=== PATIENT | female | born 1955 | race Caucasian/White ===

== ENCOUNTER 2018-01-02 17:48 | Emergency (ER) | payer OTHER ==
[~2018-01-02] VITALS: Ht 165.1 cm; Wt 49.0 kg
[2018-01-02 18:13] LABS: BE -28.4 mmol/L (-2 to +3)
[2018-01-02 18:19] LABS: PCO2 < 17.0 mmHg (35.0-45.0); PO2 153.5 mmHg (75.0-100.0); pH 6.913 (7.340-7.450)
[2018-01-02 18:20] LABS: HCO3 2.9 mmol/L (22.0-26.0)
[2018-01-02 18:22] LABS: URINE BILIRUBIN NEGATIVE (Negative); URINE BLOOD 2+ (Negative); URINE CLARITY CLEAR; URINE COLOR YELLOW; URINE GLUCOSE-RANDOM 3+ (Negative); URINE LEUKOCYTES-REFLEX NEGATIVE (Negative); URINE NITRITE-REFLEX NEGATIVE (Negative); URINE PROTEIN TRACE (Negative); URINE UROBILINOGEN 0.2 E.U./dl (0.2-1.0)
[2018-01-02 18:23] LABS: URINE KETONES 3+ (Negative)
[2018-01-02 18:33] LABS: HYALINE CASTS 0-3 Few /LPF (None Seen)
[2018-01-02 18:34] LABS: URINE RBC 3-10 Few /HPF (0-2)
[2018-01-02 18:34] LABS: HEMATOCRIT 46.3 % (37.0-47.0); HEMOGLOBIN 12.5 gm/dL (12.0-15.0); MCH 30.4 pg (26.0-34.0); MCHC 26.9 g/dL (28.0-37.0); MCV 112.9 fL (80.0-100.0); NUCLEATED RBCS 0 /100WBC; PLATELET COUNT* 454 thou/uL (150-400); RDW-CV 16.9 % (10.5-14.5); WBC 25.9 thou/uL (4.0-11.0)
[2018-01-02 18:35] LABS: AMORPHOUS URATES Few /LPF (None Seen); BACTERIA-REFLEX None Seen /HPF (None Seen); MUCUS None Seen strn/LPF (None Seen); SQUAMOUS 0-3 Few /LPF (0-3); URINE WBC-REFLEX 0-5 Rare /HPF (0-5)
[2018-01-02 18:46] LABS: SALICYLATE 5.8 mg/dL (2.8-20.0)
[2018-01-02 18:48] LABS: ACETAMINOPHEN < 2 ug/mL (10-30); ALCOHOL < 10 mg/dL (<10)
[2018-01-02 18:53] LABS: ABSOLUTE LYMPHOCYTES 1.6 thou/uL (0.8-5.3); ABSOLUTE MONOCYTES 0.8 thou/uL (0.0-1.2); ABSOLUTE NEUTROPHILS 23.6 thou/uL (1.6-8.1); PLATELET ESTIMATE INCREASED
[2018-01-02 18:54] LABS: ANISOCYTOSIS 2+; MACROCYTES 2+; POIKILOCYTOSIS 2+
[2018-01-02 18:58] LABS: BUN 31 mg/dL (7-18); CALCIUM 8.8 mg/dL (8.5-10.1); CHLORIDE 100 mmol/L (98-107); CREATININE 1.9 mg/dL (0.6-1.3); SODIUM 136 mmol/L (136-145)
[2018-01-02 18:59] LABS: ANION GAP 31 mmol/L (7-16)
[2018-01-02 19:03] LABS: CO2 < 5 mmol/L (21-32); GLUCOSE 1120 mg/dL (70-99); POTASSIUM 7.7 mmol/L (3.5-5.1)
[2018-01-02 19:14] LABS: ALBUMIN 3.5 g/dL (3.4-5.0); ALKALINE PHOSPHATASE 184 U/L (46-116); CK-MB MASS 0.7 ng/mL (<0.5-3.6); NT-PRO BRAIN NAT PEPTIDE 301 pg/mL (<300); SGOT 33 U/L (15-37); SGPT 33 U/L (30-65); TOTAL BILIRUBIN 0.5 mg/dL (<0.1-1.0); TOTAL PROTEIN 7.7 g/dL (6.4-8.2); TROPONIN-I LEVEL <0.06 ng/mL (<0.06)
[2018-01-02] MEDS ORDERED: HUMALOG100 UNIT/1 (20:09)
[2018-01-02] MEDS ORDERED: XANAX1 MG (20:09)
[2018-01-02] MEDS ORDERED: REGLAN 10 MG TA10 MG (20:09)
[2018-01-02] MEDS ORDERED: CELEXA20 MG (20:10)
[2018-01-02] MEDS ORDERED: OMEPRAZOLE40 MG (20:10)
[2018-01-02] MEDS ORDERED: SINGULAIR 10 MG10 M1 (20:10)
[2018-01-02] MEDS ORDERED: insulin pump (20:11)
[2018-01-02] MEDS ORDERED: CELEBREX 200 M200 M1 (20:12)
[2018-01-02 20:47] LABS: APTT 30.8 Seconds (25.0-31.3); PROTIME 10.3 Seconds (9.20-11.50)
[2018-01-02 21:04] LABS: HEMATOCRIT 47.6 % (37.0-47.0); MCH 30.2 pg (26.0-34.0); MCHC 27.3 g/dL (28.0-37.0); MCV 110.7 fL (80.0-100.0); MPV 9.8 fl. (7.2-11.1); NUCLEATED RBCS 0 /100WBC; PLATELET COUNT* 465 thou/uL (150-400); WBC 28.2 thou/uL (4.0-11.0)
[2018-01-02 21:08] LABS: BUN 29 mg/dL (7-18); CALCIUM 8.4 mg/dL (8.5-10.1); CHLORIDE 106 mmol/L (98-107); CREATININE 1.8 mg/dL (0.6-1.3); SODIUM 141 mmol/L (136-145)
[2018-01-02 21:09] LABS: ANION GAP 30 mmol/L (7-16)
[2018-01-02 21:27] LABS: CO2 < 5 mmol/L (21-32); GLUCOSE 818 mg/dL (70-99); POTASSIUM 6.2 mmol/L (3.5-5.1)
[2018-01-02 21:44] LABS: ABSOLUTE EOSINOPHILS 0.3 thou/uL (0.0-0.7); ABSOLUTE LYMPHOCYTES 3.7 thou/uL (0.8-5.3); ABSOLUTE MONOCYTES 1.4 thou/uL (0.0-1.2); ABSOLUTE NEUTROPHILS 22.8 thou/uL (1.6-8.1)
[2018-01-02 21:46] LABS: MACROCYTES 2+; PLATELET ESTIMATE INCREASED
[2018-01-02 21:47] LABS: ANISOCYTOSIS 1+
[2018-01-02 22:34] VITALS: BP 104/38
--- NOTE | 2018-01-03 14:15 | EKG ---
[place] [address] ELECTROCARDIOGRAM REPORT Name: SHERMAN ONTIVEROS Room: [facility]#: [id number] Admission: 01/02/18 Attend Phys: Discharge: 01/02/18 Date of : 57 Report #: [id number] THIS REPORT FOR: //name// [facility] ED Test Date: 2018-01-02 Test Time: 17:49:49 Pat Name: SHERMAN ONTIVEROS Department: Room: Gender: F [employer] Supervisor: UNKNOWN : 1955 Requested By: Harris Ospina Order Number: [id number] MD: Otilio Skelton Measurements Intervals [place] Rate: 113 P: 83 [place]: 157 QRS: 35 QRSD: 95 T: 6 QT: 343 QTc: 471 Interpretive Statements Sinus tachycardia No previous ECG available for comparison Electronically Signed On 01-03-2018 14:15:46 CDT by Otilio Skelton [email or web address] <ELECTRONICALLY SIGNED> By: Otilio Skelton MD, [facility] 01/03/18 1415 1749 1749 Otilio Skelton MD, FACC /EPI
== END 2018-01-02 22:36 | disposition short-term general hospital (02) ==
LOC: M.ERS 17:48
PROVIDERS: Emergency Medicine Emergency Medical Services; Personal Emergency Response Attendant
DX: E11.10 Type 2 diabetes mellitus with ketoacidosis without coma (principal); E11.65 Type 2 diabetes mellitus with hyperglycemia

== ENCOUNTER 2020-06-04 18:21 | Inpatient (IN) | payer MEDICARE, OTHER ==
[~2020-06-04] VITALS: Ht 170.2 cm; Wt 75.9 kg
[~2020-06-04 18:21] MED LIST: CELEBREX 200 M200 M1; CELEXA20 MG; HUMALOG100 UNIT/1; OMEPRAZOLE40 MG; REGLAN 10 MG TA10 MG; SINGULAIR 10 MG10 M1; XANAX1 MG; insulin pump
[2020-06-04 18:23] VITALS: BP 130/61
[2020-06-04] MEDS ORDERED: HUMALOG100 UNIT/1 SUBQ (18:27)
[2020-06-04] MEDS ORDERED: LANTUS SUBQ (18:27)
[2020-06-04 19:23] LABS: HEMATOCRIT 41.9 % (37.0-47.0); HEMOGLOBIN 13.9 gm/dL (12.0-15.0); MCHC 33.2 g/dL (28.0-37.0); MCV 93.4 fL (80.0-100.0); MPV 10.6 fl. (7.2-11.1); NUCLEATED RBCS 0 /100WBC; PLATELET COUNT* 279 thou/uL (150-400); RBC 4.49 mil/uL (4.20-5.00); RDW-CV 14.6 % (10.5-14.5)
[2020-06-04 19:24] LABS: BE -8.1 mmol/L (-2 to +3); PCO2 VENOUS 26.5 mmHg (41.0-51.0); PO2 VENOUS 184.1 mmHg (35.0-45.0)
[2020-06-04 19:32] LABS: CALCIUM 9.3 mg/dL (8.5-10.1); CREATININE 1.2 mg/dL (0.6-1.3); POTASSIUM 4.1 mmol/L (3.5-5.1)
[2020-06-04 19:36] LABS: ALBUMIN 3.8 g/dL (3.4-5.0); TOTAL BILIRUBIN 0.8 mg/dL (<0.1-1.0); TOTAL PROTEIN 7.9 g/dL (6.4-8.2)
[2020-06-04 19:45] LABS: URINE BLOOD 2+ (Negative); URINE CLARITY CLEAR; URINE COLOR YELLOW; URINE GLUCOSE-RANDOM 1+ (Negative); URINE LEUKOCYTES-REFLEX NEGATIVE (Negative); URINE NITRITE-REFLEX NEGATIVE (Negative); URINE PROTEIN 1+ (Negative); URINE SPECIFIC GRAVITY >= 1.030 (1.005-1.030); URINE UROBILINOGEN 0.2 E.U./dl (0.2-1.0)
[2020-06-04 19:46] LABS: URINE KETONES 3+ (Negative)
[2020-06-04 19:47] LABS: ICTOTEST (BILI CONFIRMATORY) Negative (Negative); URINE BILIRUBIN 1+ (Negative)
[2020-06-04 19:51] LABS: SQUAMOUS 0-3 Few /LPF (0-3)
[2020-06-04 19:52] LABS: BACTERIA-REFLEX >30 Many /HPF (None Seen); CASTS None Seen /LPF (None Seen); CRYSTALS None Seen /LPF (None Seen); HYALINE CASTS 0-3 Few /LPF (None Seen); MUCUS 4-6 Moderate strn/LPF (None Seen); URINE RBC 0-2 Rare /HPF (0-2); URINE WBC-REFLEX None Seen /HPF (0-5)
[2020-06-04 19:53] LABS: AMP/METHAMP Negative (Negative); BARBITURATES Negative (Negative); BENZODIAZEPINES POSITIVE (Negative); COCAINE Negative (Negative); METHADONE Negative (Negative); OPIATES Negative (Negative); PCP Negative (Negative); THC POSITIVE (Negative)
[2020-06-04 20:20] LABS: ABSOLUTE LYMPHOCYTES 1.4 thou/uL (0.8-5.3); ABSOLUTE MONOCYTES 0.8 thou/uL (0.0-1.2); ABSOLUTE NEUTROPHILS 17.8 thou/uL (1.6-8.1)
[2020-06-04 20:21] LABS: PLATELET ESTIMATE ADEQUATE
[2020-06-04 23:15] VITALS: BP 118/60
[2020-06-05] VITALS (8 sets, daily range): BP systolic 115–144; BP diastolic 43–75
[2020-06-05] MEDS ORDERED: DULOXETINE HCL20 MG PO (01:18)
[2020-06-05 04:38] LABS: ABSOLUTE LYMPHOCYTES 1.7 thou/uL (0.8-5.3); ABSOLUTE MONOCYTES 1.5 thou/uL (0.0-1.2); ABSOLUTE NEUTROPHILS 12.9 thou/uL (1.6-8.1); BASOPHILS 0.2 %; HEMATOCRIT 35.9 % (37.0-47.0); LYMPHOCYTES 10.8 %; MCHC 33.5 g/dL (28.0-37.0); MCV 92.4 fL (80.0-100.0); MONOCYTES 9.5 %; MPV 10.9 fl. (7.2-11.1); NUCLEATED RBCS 0 /100WBC; PLATELET COUNT* 267 thou/uL (150-400); POLYS 79.5 %; RBC 3.89 mil/uL (4.20-5.00); RDW-CV 14.3 % (10.5-14.5); WBC 16.3 thou/uL (4.0-11.0)
[2020-06-05 05:57] LABS: CALCIUM 8.4 mg/dL (8.5-10.1); CREATININE 0.9 mg/dL (0.6-1.3); POTASSIUM 3.1 mmol/L (3.5-5.1)
--- NOTE | 2020-06-05 09:43 | EKG ---
[place] [address] ELECTROCARDIOGRAM REPORT Name: SHERMAN ONTIVEROS Room: [address] ADM IN ..#: [id number] Admission: 06/04/20 Attend Phys: Wilson Diaz, Discharge: Date of : 57 Date of Service: 06/04/20 1845 Report #: [id number] THIS REPORT FOR: //name// [facility] ED Test Date: 2020-06-04 Test Time: 18:45:04 Pat Name: SHERMAN ONTIVEROS Department: Room: [facility] Gender: F Outside Maintenance Worker: GABRIELE : 1955 Requested By: Vania Jaime Order Number: [id number] MD: Luigi Singer Measurements Intervals [place] Rate: 81 P: 78 [place]: 133 QRS: 39 QRSD: 85 T: 45 QT: 395 QTc: 459 Interpretive Statements Sinus rhythm Low voltage, precordial leads Baseline wander in lead(s) II,III,aVL,aVF Compared to ECG 01/02/2018 17:49:49 Low QRS voltage now present Sinus tachycardia no longer present Electronically Signed On 06-05-2020 9:43:35 [employer] by Luigi Singer [email or web address] <ELECTRONICALLY SIGNED> By: Luigi Singer MD, FACC 06/05/20 0943 44 44 Luigi Singer MD, [facility] /EPI
[2020-06-06 08:15] VITALS: BP 126/59
[2020-06-06 10:28] LABS: ABSOLUTE LYMPHOCYTES 3.1 thou/uL (0.8-5.3); ABSOLUTE MONOCYTES 0.7 thou/uL (0.0-1.2); BASOPHILS 0.6 %; EOSINOPHILS 0.1 %; HEMATOCRIT 36.8 % (37.0-47.0); HEMOGLOBIN 12.5 gm/dL (12.0-15.0); LYMPHOCYTES 39.8 %; MCH 31.1 pg (26.0-34.0); MCHC 34.1 g/dL (28.0-37.0); MCV 91.2 fL (80.0-100.0); MONOCYTES 9.2 %; MPV 10.3 fl. (7.2-11.1); NUCLEATED RBCS 0 /100WBC; PLATELET COUNT* 278 thou/uL (150-400); POLYS 50.3 %; RBC 4.04 mil/uL (4.20-5.00); WBC 7.9 thou/uL (4.0-11.0)
[2020-06-06 10:41] LABS: CALCIUM 8.2 mg/dL (8.5-10.1); CREATININE 0.7 mg/dL (0.6-1.3); TOTAL BILIRUBIN 0.7 mg/dL (<0.1-1.0); TOTAL PROTEIN 6.4 g/dL (6.4-8.2)
[2020-06-06 10:50] LABS: POTASSIUM 2.7 mmol/L (3.5-5.1)
[2020-06-06 13:33] LABS: CALCIUM 8.4 mg/dL (8.5-10.1); CREATININE 0.6 mg/dL (0.6-1.3)
[2020-06-06 13:34] LABS: POTASSIUM 2.5 mmol/L (3.5-5.1)
[2020-06-06 13:36] LABS: MAGNESIUM 1.9 mg/dL (1.8-2.4); PHOSPHORUS* 1.9 mg/dL (2.5-4.9)
[2020-06-06 16:23] VITALS: BP 149/58
[2020-06-06 20:57] VITALS: BP 118/52
[2020-06-07 07:42] LABS: ABSOLUTE BASOPHILS 0.1 thou/uL (0.0-0.2); ABSOLUTE LYMPHOCYTES 4.2 thou/uL (0.8-5.3); ABSOLUTE MONOCYTES 0.8 thou/uL (0.0-1.2); ABSOLUTE NEUTROPHILS 2.9 thou/uL (1.6-8.1); BASOPHILS 0.8 %; EOSINOPHILS 0.5 %; HEMATOCRIT 37.1 % (37.0-47.0); HEMOGLOBIN 12.6 gm/dL (12.0-15.0); LYMPHOCYTES 52.2 %; MCH 31.3 pg (26.0-34.0); MCHC 33.9 g/dL (28.0-37.0); MCV 92.2 fL (80.0-100.0); MONOCYTES 10.2 %; MPV 10.6 fl. (7.2-11.1); NUCLEATED RBCS 0 /100WBC; PLATELET COUNT* 265 thou/uL (150-400); POLYS 36.3 %; RBC 4.02 mil/uL (4.20-5.00); RDW-CV 14.2 % (10.5-14.5)
[2020-06-07 07:45] VITALS: BP 129/54
[2020-06-07 08:10] LABS: ALBUMIN 3.1 g/dL (3.4-5.0); CALCIUM 8.5 mg/dL (8.5-10.1); CREATININE 0.7 mg/dL (0.6-1.3); POTASSIUM 3.4 mmol/L (3.5-5.1); TOTAL BILIRUBIN 0.9 mg/dL (<0.1-1.0); TOTAL PROTEIN 6.3 g/dL (6.4-8.2)
[2020-06-07] MEDS ORDERED: ERYTHROMYCIN250 M1 PO (11:21)
[2020-06-07 15:56] VITALS: BP 129/54
== END 2020-06-07 16:55 | disposition home or self-care (01) | DRG 638 ==
LOC: M.ERS 18:21 → M.TBA-ER 20:36 → M.2W 20:36 → M.3W 20:36 → M.2W 06-05 00:27 → M.3W 06-05 15:23
PROVIDERS: Emergency Medicine Emergency Medical Services; Nurse Practitioner Family; ADMIT Internal Medicine; ATTEND Internal Medicine
DX: E10.10 Type 1 diabetes mellitus with ketoacidosis without coma (principal); N39.0 Urinary tract infection, site not specified; R65.10 Systemic inflammatory response syndrome (SIRS) of non-infectious origin without acute organ dysfunction; F41.9 Anxiety disorder, unspecified; F32.9 Major depressive disorder, single episode, unspecified; K31.84 Gastroparesis; F12.90 Cannabis use, unspecified, uncomplicated; E10.43 Type 1 diabetes mellitus with diabetic autonomic (poly)neuropathy; E78.00 Pure hypercholesterolemia, unspecified; Z20.822 Contact with and (suspected) exposure to COVID-19; Z79.4 Long term (current) use of insulin; Z79.899 Other long term (current) drug therapy